=== PATIENT | male | born 1965 | race Caucasian/White ===

== ENCOUNTER 2017-03-18 03:38 | Inpatient (IN) ==
[2017-03-18] MEDS ORDERED: ZOFRAN IV ONE (04:12)
[2017-03-18] MEDS ORDERED: NS 1,000 ML IV ONE ×3 (04:12→10:42)
[2017-03-18] MEDS ORDERED: TORADOL IV ONE (04:14)
[2017-03-18] MEDS ORDERED: TORADOL ONE (04:16)
[2017-03-18 04:36] LABS: BASO% 0.2 % (0.0-0.8); EOS# 0.05 X1000 (0.0-0.7); EOS% 0.3 % (0.0-10.0); HEMATOCRIT 39.4 % (42.0-52.0); HEMOGLOBIN 14.4 g/dL (14.0-18.0); IMM GRAN# 0.04 X1000 (0.0-0.04); IMM GRAN% 0.3 % (0.0-0.5); LYMPH# 1.02 X1000 (1.2-3.4); LYMPH% 6.7 % (20.5-51.1); MANUAL DIFF NEEDED? YES; MCH 31.6 PG (27-31); MCHC 36.5 g/dL (33-37); MCV 86.4 FL (81-99); MONO# 0.96 X1000 (0.11-0.59); MONO% 6.3 % (1.7-9.3); MPV 9.9 FL (7.4-10.4); NEUT% 86.2 % (42.2-75.2); PLT 249 X1000 (130-400); RBC 4.56 XMIL (4.7-6.1)
[2017-03-18] MEDS ORDERED: VANCOMYCIN 1 GM/NS 1 GM/250 ML IVPB IV ONE ×2 (04:41→08:00)
--- NOTE | 2017-03-18 04:52 | PROVIDER DOCUMENTATION ---
HPI-Rash/Wound/ReCheck - General Chief Complaint: Extremity Pain Stated Complaint: INSECT BITE/STING Time Seen by Provider: 03/18/17 04:34 Source: patient Allergies/Adverse Reactions: Allergies Allergy/AdvReac Type Severity Reaction Status Date / Time metformin AdvReac NAUSEA/VOMI Verified 01/29/17 09:00 TING Home Medications: Home Medication List Medication Instructions Recorded Confirmed Last Taken Type Cyclobenzaprine [Flexeril] 10 mg PO TID PRN #30 tablet 03/18/15 03/18/17 21:00 Rx Insulin Degludec [Tresiba 28 unit SQ QHS 01/29/17 03/18/17 01/30/17 22:00 History Flextouch U-100] Pregabalin [Lyrica] 75 mg PO BID 01/29/17 03/18/17 01/30/17 06:20 History Hydrocodone/Acetaminophen [[place] 1 each PO Q4H PRN #25 tablet 01/31/17 03/18/17 Unknown Rx 10-325 Tablet] Linagliptin [Tradjenta] 5 mg PO DAILY 03/18/17 03/18/17 Unknown History - History of Present Illness-Dermatology Nature of Presenting Problem: yesterday developed cellutitis and lymphangitis from small pimple on palm of left hand has had 100.5 temp and chills pt is diabetic Location: reports: upper extremity Quality: reports: painful Severity: reports: moderate Onset/Duration: reports: 3 days ago Timing: reports: getting worse Context/Associated Symptoms: reports: unknown bite/sting, change in skin texture Identifiable cause?: No Locality of Occurance: Home Similar Symptoms Previously?: No Recently seen or treated by another doctor?: No Review of Systems - Adult - REVIEW OF SYSTEMS - ADULT Constitutional: reports: chills, fever Eyes: reports: no symptoms reported Ears, Nose, Mouth & Throat: reports: no symptoms reported Cardiovascular: reports: no symptoms reported Respiratory: reports: no symptoms reported Gastrointestinal: reports: no symptoms reported. denies: abdominal pain, hematemesis, diarrhea, nausea, vomiting Genitourinary: reports: dysuria Integumentary: reports: see HPI Neurological: reports: no symptoms reported Psychiatric: reports: no symptoms reported Endocrine: reports: no symptoms reported Hematologic/Lymphatic: reports: no symptoms reported Allergic/Immunologic: reports: no symptoms reported Past History - Adult - PAST MEDICAL HISTORY-ADULT Review of Records: reports: Nursing Assessment Review, Medications Reviewed Major Childhood Illnesses: reports: denies history Cardiovascular: reports: denies history Respiratory: reports: denies history Gastrointestinal: reports: denies history Genitourinary: reports: denies history Musculoskeletal: reports: chronic pain Neurological: reports: denies history Endocrine/Immune: reports: Diabetes Diabetes Type: Type 2 - PRIOR SURGERIES/PROCEDURES Surgical/Procedure History: reports: orthopedic (extremity) - IMMUNIZATION STATUS Childhood Immunizations: See Nurse Assessment Flu Vaccine: See Nurse Assessment Physical Exam-General - PHYSICAL EXAM-ADULT Initial Vital Signs Reviewed: Yes - CONSTITUTIONAL General Appearance: appears well - EYES Eyes: PERRL/EOMI, pink conjunctivae - HEAD, EARS, NOSE, MOUTH & THROAT HENMT: normocephalic/atraumatic, moist mucous membranes, normal ENT inspection - NECK Neck: non-tender, full range of motion, supple - RESPIRATORY Respiratory: chest non-tender, lungs clear - CARDIOVASCULAR Cardiovascular: normal peripheral pulses, regular rate, rhythm, no edema - GASTROINTESTINAL (ABDOMEN) Abdominal Exam: soft - LYMPHATIC Lymphatic: no adenopathy - MUSCULOSKELETAL Back Exam: normal inspection Extremity: normal range of motion, swelling - SKIN Integumentary: erythema, tenderness, warm - NEUROLOGIC Neurologic: medical records assistant II-XII nml as tested - PSYCHIATRIC Psych/Mental Status: oriented x 3 Progress - PLAN OF CARE/RESULTS Result Diagrams: 03/19/17 06:10 03/19/17 06:10 Departure - Departure Time of Disposition Decision: 05:38 DIAGNOSIS: Cellulitis Qualifiers: Site of cellulitis: extremity Site of cellulitis of extremity: upper extremity Laterality: left Qualified Code(s): L03.114 - Cellulitis of left upper limb Disposition: ADMITTED INPATIENT 09 Certified Medical Emergency: Emergent Condition: Stable - Critical Care Note This patient required my direct & personal management of CC.: No
[2017-03-18 04:53] LABS: AGAP 15; ALBUMIN 4.2 g/dL (3.5-5.0); ALKALINE PHOSPHATASE 107 U/L (32-122); BUN 19 mg/dL (8-22); CALCIUM 9.7 mg/dL (8.8-10.2); CHLORIDE 90 mmol/L (98-107); COSMO 272; GOT 12 U/L (10-34); GPT 15 U/L (10-44); SODIUM 127 mmol/L (136-145); TCO2 22 mmol/L (25-35); TOTAL PROTEIN 7.3 g/dL (6.3-8.3)
[2017-03-18] MEDS ORDERED: NORCO-7.5 PO ONE (05:00)
[2017-03-18] MEDS ORDERED: SODIUM CHLORIDE 0.9% INJ ONE (05:01)
[2017-03-18] MEDS ORDERED: PHENERGAN IV ONE (05:01)
[2017-03-18 05:06] LABS: BANDS 2 % (0-1); LYMPHS 7 % (21-51); MONO 1 % (1-9)
[2017-03-18] MEDS ORDERED: TYLENOL PO ONE (05:21)
[2017-03-18] MEDS ORDERED: MOTRIN PO ONE (05:21)
[2017-03-18] MEDS ORDERED: VANCOMYCIN IV PER PHARMACY MISC SCH (05:45)
[2017-03-18] MEDS ORDERED: CLINDAMYCIN 600 MG/NS 600 MG/50 ML IVPB IV SCH (09:30)
[2017-03-18] MEDS ORDERED: ZOFRAN IV PRN (10:44)
[2017-03-18] MEDS ORDERED: FLEXERIL PO PRN (10:44)
[2017-03-18] MEDS ORDERED: HUMALOG SUBQ SCH (11:00)
--- NOTE | 2017-03-18 11:03 | Diag Imaging Result Doc PS360 ---
EXAM: WRIST COMPLETE LEFT HISTORY: cellulitis, sepsis TECHNIQUE: Three views COMPARISON: None. FINDINGS: No fracture. No dislocation. No other bony abnormality. IMPRESSION: Negative exam Electronically signed by John Barrios 03/18/2017 11:00 AM
--- NOTE | 2017-03-18 11:05 | Diag Imaging Result Doc PS360 ---
EXAM: HAND COMPLETE LEFT HISTORY: cellulitis, sepsis TECHNIQUE: Three views COMPARISON: None. FINDINGS: No fracture. No dislocation. No bone erosions. No subluxation. IMPRESSION: No acute abnormality. Electronically signed by John Barrios 03/18/2017 11:03 AM
--- NOTE | 2017-03-18 11:07 | HISTORY AND PHYSICAL ---
PRIMARY CARE PROVIDER: MERCEDEZ Davis. CHIEF COMPLAINT: Swelling and pain to his left hand. HISTORY OF PRESENT ILLNESS: This is a 51-year-old male with a history of insulin- dependent diabetes, who presented to the emergency room complaining of fever, chills, pain, swelling, and redness to his left hand. He states that this started as a little yellow pimple at his MCP joint. This did drain and shortly after he began to develop redness, swelling, and pain with red streaks going up his left arm. He had been working outside prior to this incident. He was noted to have a temperature of a 100.2 degrees with a heart rate of 133 in the emergency room, as well as a white count of 15.2. He was given a liter of saline bolus as well as vancomycin and admitted for further evaluation and treatment. PAST MEDICAL HISTORY: Insulin-dependent diabetes. PAST SURGICAL HISTORY: Epidermal cyst excised to his neck in January 2017. SOCIAL HISTORY: He denies alcohol, tobacco, or illicit drug use. ALLERGIES: Metformin which causes nausea and vomiting. HOME MEDICATIONS: A list will be obtained. REVIEW OF SYSTEMS: A 14 point review of systems is discussed with patient with pertinent positives stated in HPI. He denies chest pain, palpitations, syncope, dizziness , any cough, nausea, vomiting, diarrhea, constipation, black or bloody vomitus, black or bloody stools, any hematuria, dysuria, frequency, urgency. PHYSICAL EXAMINATION: GENERAL: This is a 51-year-old male, who is sitting in the bed, drowsy after having Phenergan. VITAL SIGNS: Blood pressure is 127/65, with a heart rate of 122, respirations are 20, temperature is 101.9 degrees with room air saturations of 96 to 98%. HEENT: Head is normocephalic, atraumatic. Pupils equal, round, react to light. EOMs are intact. Sclerae anicteric. Mucous membranes are dry. NECK: Supple with trachea midline. CARDIOVASCULAR: Regular rate and rhythm. He is tachycardic. S1 and S2 appreciated. PULMONARY: Breath sounds are clear with no increased work of breathing noted. GASTROINTESTINAL: Abdomen is soft, nontender, nondistended. Bowel sounds in all 4 quadrants. BACK: No CVAT. No spine tenderness. MUSCULOSKELETAL: Good range of motion to joints. NEUROLOGIC: He is alert and oriented x3 with cranial nerves 2 through 12 grossly intact. EXTREMITIES: No clubbing, cyanosis, or edema to right arm or lower extremities. Left arm is edematous from just above his elbow down to his finger tips. He does have swelling with redness to his hand and up about 2 inches onto his wrist with red streaks running up his arm to his axillary area. He does have limited movement to his MCP joint to his 5th finger of his left hand due to swelling and pain. DIAGNOSTICS: WBC is 15.2, with hemoglobin 14.4, hematocrit 39.4, and platelets of 249,000. Sodium is 127, potassium 4, BUN 19, creatinine 0.9, anion gap is 15, with a CO2 of 22, glucose is 355, lactate is 2. ASSESSMENT: This is a 51-year-old male who is being admitted for cellulitis to his left hand. 1. Sepsis secondary to cellulitis of left hand. 2. Cellulitis left hand at the metacarpophalangeal joint of 5th finger. 3. Insulin-dependent diabetes. 4. Hyponatremia. PLAN: He will be admitted to the hospital. Blood cultures were obtained. He was started on vancomycin. We will continue this. We will add clindamycin. Once cultures return if needed antibiotics may be changed as appropriate to their results. We will x-ray his left hand as well as wrist. Orthopedics has been consulted. We will identify his home medications and continue as appropriate. Sliding scale insulin with pattern blood glucose. We will repeat his labs. We will continue with IV hydration and pain and nausea control. Further treatments pending hospital course. Dictated by MERCEDEZ Flores for Jassi Sparks MD cc: MERCEDEZ Flores MD pt examined, agree with above APENOT MTDD
[2017-03-18] MEDS: HUMALOG DOSE (PARKWAY) SUBQ SCH ×3 (11:50→21:38)
[2017-03-18] MEDS: NORCO-7.5 PO PRN ×3 (12:04→23:31)
[2017-03-18 12:11] LABS: HEMATOCRIT 36.9 % (42.0-52.0); MCH 30.8 PG (27-31); MCHC 35.2 g/dL (33-37); MCV 87.4 FL (81-99); MPV 9.4 FL (7.4-10.4); RBC 4.22 XMIL (4.7-6.1)
[2017-03-18 12:28] LABS: AGAP 12; BUN 20 mg/dL (8-22); CALCIUM 8.6 mg/dL (8.8-10.2); CHLORIDE 98 mmol/L (98-107); COSMO 276; POTASSIUM 3.7 mmol/L (3.5-5.1); SODIUM 132 mmol/L (136-145); TCO2 22 mmol/L (25-35)
--- NOTE | 2017-03-18 13:51 | CONSULTATION ---
DATE OF CONSULTATION: 03/18/2017 CHIEF COMPLAINT: Right hand pain with cellulitis. HISTORY OF PRESENT ILLNESS: A 51-year-old, insulin-dependent diabetic reports getting his hand scratched several days ago. Subsequently developed increased redness, swelling and warmth over the hand. He is admitted by the hospitalist for IV antibiotics for cellulitis. I was consulted just to evaluate for any joint or tendon involvement. Presently he reports appropriate pain tenderness over the right hand. PAST MEDICAL HISTORY: Significant for insulin-dependent diabetes as it relates to the infection. The rest is up-to-date and accurate per the chart. MEDICATIONS: Per the chart. ALLERGIES: Per the chart. PHYSICAL EXAMINATION: Examination the right hand reveals some streaking and cellulitis with erythema over the finger extending up into the hand. He has good active and passive range of motion of all digits and thumb indicating minimal to no flexor tendon involvement. There is no localized abscess which I can palpate. He has good range of motion the PIP and DIP and MCP joints indicating no obvious septic joint at the present time. ASSESSMENT: Cellulitis of the hand. PLAN: At this point in time I think he will respond to IV antibiotics and diabetic control. I do not see any surgical abscess or tendon involvement at present time. He can be treated with IV antibiotics and discharged for followup in my office. If his condition changes or worsens then will be happy to reevaluate him. Sincerely, cc: Gregory Puentes MD
[2017-03-18] MEDS ORDERED: TYLENOL PO PRN (15:34)
[2017-03-18] MEDS ORDERED: INSULIN PEN NEEDLES ONE (21:35)
[2017-03-18] MEDS: VANCOMYCIN 1,800 MG in NS 250 ML IV SCH (21:37)
[2017-03-18] MEDS: INSULIN DEGLUDEC SQ SCH (21:37)
[2017-03-18] MEDS: CLINDAMYCIN 600 MG/NS 600 MG/50 ML IVPB IV SCH (21:37)
[2017-03-18] MEDS: LYRICA PO SCH (21:38)
[2017-03-19] MEDS: CLINDAMYCIN 600 MG/NS 600 MG/50 ML IVPB IV SCH ×3 (03:21→21:43)
[2017-03-19] MEDS: NORCO-7.5 PO PRN ×3 (06:20→22:49)
[2017-03-19] MEDS: PRILOSEC PO SCH (06:20)
[2017-03-19] MEDS: HUMALOG DOSE (PARKWAY) SUBQ SCH ×4 (06:21→21:45)
[2017-03-19 06:40] LABS: HEMATOCRIT 38.1 % (42.0-52.0); HEMOGLOBIN 13.3 g/dL (14.0-18.0); MCH 30.6 PG (27-31); MCHC 34.9 g/dL (33-37); MCV 87.8 FL (81-99); MPV 9.8 FL (7.4-10.4); RBC 4.34 XMIL (4.7-6.1)
[2017-03-19 06:49] LABS: HEMOGLOBIN A1C 9.3 % (4.8-6.0)
[2017-03-19 07:03] LABS: AGAP 14; BUN 14 mg/dL (8-22); CALCIUM 8.6 mg/dL (8.8-10.2); CHLORIDE 95 mmol/L (98-107); COSMO 267; POTASSIUM 3.6 mmol/L (3.5-5.1); SODIUM 131 mmol/L (136-145); TCO2 23 mmol/L (25-35)
[2017-03-19] MEDS ORDERED: DILAUDID IV ONE (07:44)
[2017-03-19] MEDS: LYRICA PO SCH ×2 (08:04→21:44)
[2017-03-19] MEDS: TRADJENTA PO SCH (08:04)
[2017-03-19] MEDS: VANCOMYCIN 1,800 MG in NS 250 ML IV SCH (08:22)
[2017-03-19] MEDS ORDERED: ZOSYN 3.375 GM/NS 3.375 GM/50 ML IVPB IV SCH (09:45)
[2017-03-19] MEDS ORDERED: ROCEPHIN 1 GM/NS 1 GM/50 ML IVPB IV SCH (10:15)
[2017-03-19] MEDS: CLINDAMYCIN 900 MG/NS 900 MG/50 ML IVPB IV SCH ×2 (11:17→11:21)
--- NOTE | 2017-03-19 12:28 | Extremity Venous Study ---
EXAM: Venous U/S Left Arm HISTORY: r/o dvt TECHNIQUE: Venous ultrasound of the left upper extremity with color Doppler COMMENT: There is no evidence of obstruction to venous flow in the deep veins of the left upper extremity. No evidence of superficial venous thrombosis is present. There are no abnormal fluid collections. IMPRESSION: No evidence of deep venous thrombosis. Electronically signed by Alex Key 03/19/2017 12:26 PM
[2017-03-19] MEDS: LACTINEX PO SCH ×2 (12:33→17:45)
[2017-03-19] MEDS: DILAUDID IV PRN ×2 (15:18→21:17)
--- NOTE | 2017-03-19 15:36 | Diag Imaging Result Doc PS360 ---
EXAM: MRI UPPER EXT W/WO CON-LEFT HISTORY: cellulitis TECHNIQUE: MRI of the left forearm with and without gadolinium, T2 sagittal gradient sagittal, axial pre and post gadolinium and axial T2, coronal T1, T2 and T1 fat sat post gadolinium series. COMMENT: There is soft tissue edema in the subcutaneous tissues extending from the area of the antecubital fossa to the wrist and mostly in the volar aspect but some dorsally in the area of the wrist. There is no evidence of abnormal marrow signal in the regional skeleton. There is gadolinium enhancement in the aforementioned soft tissue regions. No signal alterations are seen in the musculature. IMPRESSION: Superficial cellulitis. Electronically signed by Alex Key 03/19/2017 3:34 PM
--- NOTE | 2017-03-19 16:18 | PROGRESS NOTE ---
DATE: 03/19/2017 SUBJECTIVE: The patient states that he is having much more pain to his left hand with increasing swelling, as well as some decreased sensation to his 5th and 4th fingers. OBJECTIVE: Vital Signs: Blood pressure 144/79, heart rate 100, respirations 19 , temperature 100 degrees oral, room air saturation of 97-100%. Cardiovascular: Regular rate and rhythm. S1 and S2 appreciated. Pulmonary: Breath sounds are clear with no increased work of breathing noted. Gastrointestinal: Abdomen is soft, nontender, nondistended with bowel sounds in all 4 quadrants. Extremities: No clubbing, cyanosis, or edema to the right upper extremity or bilateral lower extremities. Left upper extremity has noted edema from the elbow down to fingertips with erythema up to about an inch to 2 inches above his wrist to fingertips with increase in swelling to his hand. He does have decreased movement to the MCP joint of his 5th finger, left hand. He does state he has decreased sensation to this 5th finger as well as the 4th. He does have palpable radial and ulnar pulses with capillary refill less than 3 seconds. LABS: WBC is 16.7 with hemoglobin 13.3, hematocrit 38.1 and platelets of 219, 000. Sodium is 131, potassium 3.6, BUN 14, creatinine 0.7 with a glucose running 160-190. His A1c is 9.3. DIAGNOSTIC: 1. Extremity Doppler to left arm is negative for DVT. 2. MRI to his left upper extremity is pending. PROBLEM LIST: 1. Cellulitis to left hand. 2. Sepsis secondary to cellulitis. 3. Insulin-dependent diabetes. 4. Hyponatremia. ASSESSMENT AND PLAN: Patient states his pain increased about between 3 and 4 this morning. He had a sudden onset of sharp pain along with an increase in swelling and the patient has kept his arm elevated throughout the hospitalization. Edema has increased to his elbow now with increased edema to his hand. He does have less movement to that 5th finger and decreased sensation. Wound culture returned as group A strep. I did speak with Dr. Kellogg in Infectious Disease and antibiotics were changed to clindamycin and Rocephin for this. The patient will be transferred to [facility] for continued orthopedic care. Dictated by MERCEDEZ Flores for Jassi Sparks MD cc: MERCEDEZ Flores MD pt examined, agree with above, MRI to evaluate for abscess, and will need to r/ o DVT APENOT MTDD
[2017-03-19] MEDS ORDERED: INSULIN PEN NEEDLES ONE (16:43)
[2017-03-19] MEDS ORDERED: BOOSTRIX VACCINE IM ONE (16:55)
--- NOTE | 2017-03-19 17:14 | CONSULTATION ---
DATE OF CONSULTATION: 03/19/2017 CONCLUSION: The patient is admitted to the hospital with cellulitis involving the left hand, and with lymphangitis involving the rest of the left arm. On MRI, only cellulitis was found. There was no abscess, and the cellulitis was said to be superficial. RECOMMENDATIONS: I agree with treating the patient with clindamycin. I have substituted Zosyn for Rocephin. I told patient to elevate his L arm as much as possible and I also ordered the elevation. Since the patient did not remember when he had his last tetanus immunizatin, I ordered a tetanus/diphtheria/acellular pertussis immunization. DISCUSSION: The patient says approximately 5 days ago, his left hand became swollen and erythematous, and progressively got worse. He also had fever. 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 He has been receiving antibiotics at [facility], consisting of clindamycin and Rocephin, and his hand has gotten worse. LABORATORY STUDIES: The patient's laboratory studies thus far show a CBC, the white count went from 18,600 to 16,730. Hemoglobin is 13.3, and platelet count is 219,000. Creatinine is 0.7. GFR is greater than 60. Liver function studies are normal. Cultures from the blood and left hand thus far are pending. PAST MEDICAL HISTORY/REVIEW OF SYSTEMS: Eyes and Ears: The patient has decreased hearing and vision. Neck: No stiffness. Respiratory: No cough or shortness of breath. Cardiovascular: No chest pain or palpitations. Gastrointestinal: No nausea, vomiting, or diarrhea. The patient has not had a stool in the past day, and usually he states he goes every day. Genitourinary: No dysuria or flank pain. Endocrine: The patient has diabetes, but not thyroid disease. Bones, Joints, Muscles: Please see present illness. Otherwise, the patient does not complain of having joint pains or muscle pain. Neurologic: No seizures. No loss of motor or sensory function. Hematologic: No anemia or bleeding tendency. PREVIOUS HOSPITALIZATIONS AND OPERATIONS: He has had a cyst removed from his neck. He has had surgery on his left shoulder. He has had epidural injections into his spine for pain relief. MEDICAL DISEASES: Positive for diabetes mellitus. The patient says his blood pressure is elevated at times, but not continuously. Patient also has arthritis, most likely due to osteoarthritis. Infectious Disease history negative for pneumonia and UTI. FAMILY HISTORY: Positive for diabetes mellitus and alcoholism. SOCIAL HISTORY: [place] He does not drink, smoke, or abuse drugs. He has rabbits and dogs for pets. He is allergic to metformin. He works as a maintenance millwright. HOME MEDICATIONS: He is on Flexeril, Lyrica, Tradjenta, insulin, and hydrocodone. PHYSICAL EXAMINATION: Vital Signs: Temperature is 98.9 degrees, pulse 101, respirations 16, blood pressure 149/85. General: This is a fairly healthy-appearing, middle- aged male. He is in no acute distress. Head, Eyes, Ears, Nose, and Throat: He can hear my spoken words and see near objects. The patient has teeth, but they seem to be in very poor state of repair, and many of them appear to have cavities. Neck: No meningismus. Thorax: No increased AP diameter. Lungs: Clear to auscultation. Cardiovascular: Regular heart rate. Peripheral pulses are palpable. Abdomen: Soft and nontender. Extremities: The patient's left hand is swollen , erythematous, and tender. Passive movement of the fingers causes the patient to have pain. Also , the same thing with the wrist, in that passive movement causes pain. There is lymphangitic streaking occurring from the patient's hand, almost up to the top of the arm. Neurologic: Patient is awake. He can move his extremities. There is no tremor. His sensation is intact to touch. His memory, as regarding his medical history, is intact also. Thank you for the consult. cc: Bob Kellogg MD [facility]CH HOSPITALHugh
[2017-03-19] MEDS: ZOSYN 3.375 GM/NS 3.375 GM/50 ML IVPB IV SCH ×2 (17:44→22:49)
--- NOTE | 2017-03-19 18:07 | PROGRESS NOTE ---
DATE: 03/19/2017 SUBJECTIVE: I have seen Mr. Bello today for followup. He has undergone an MRI of the forearm. Review of the MRI showed no evidence of a localized abscess or fluid collection which could be surgically drained. It did show evidence of extensive cellulitis. We have suggested the possibility of an infectious disease consult just for further IV antibiotic choices. OBJECTIVE: Presently on exam he has good range of motion of the digits. There is minimal swelling of the digits, once again suggesting no obvious flexor tendon sheath involvement. There are no active draining sores. He does have some extensive cellulitis over the hand and into the forearm. Will follow along just to verify that he improves. At the present time, I do not see any surgical indications. Continue with IV antibiotics and infectious disease consultation. cc: Gregory Puentes MD
[2017-03-19] MEDS: INSULIN DEGLUDEC SQ SCH (21:45)
[2017-03-20] MEDS: DILAUDID IV PRN ×7 (02:32→23:02)
[2017-03-20] MEDS: ZOSYN 3.375 GM/NS 3.375 GM/50 ML IVPB IV SCH ×6 (03:47→22:16)
[2017-03-20] MEDS: CLINDAMYCIN 600 MG/NS 600 MG/50 ML IVPB IV SCH ×3 (04:49→22:22)
[2017-03-20] MEDS: NORCO-7.5 PO PRN ×2 (04:49→17:59)
[2017-03-20] MEDS: PRILOSEC PO SCH (06:22)
[2017-03-20] MEDS: HUMALOG DOSE (PARKWAY) SUBQ SCH ×2 (06:23→12:09)
--- NOTE | 2017-03-20 08:44 | PROGRESS NOTE ---
DATE: 03/20/2017 PRESENT ILLNESS: The patient has a severe cellulitis involving the left hand, and has with it an associated lymphangitis extending up the left arm. Overall, I think the patient is improving as manifested by the fact that his white count is down a little bit. Overall, I think the patient is improving as manifested by the fact that his white count is down a little bit. Also, there is slightly less swelling and the patient reports that he can move his fingers much easier than previously and he is having overall less pain. MEDICATIONS: The patient is on a combination now of clindamycin and Zosyn. PHYSICAL EXAMINATION: Vital Signs: Temperature is 98.7 degrees, pulse 97, respirations 18, blood pressure 131/76. General: This is a fairly healthy-appearing, middle-aged male. He is in no acute distress. Lungs: Clear to auscultation. Cardiovascular: Regular heart rate. Abdomen: Soft and nontender. Extremities: The left arm, although slightly less swollen, still is swollen and there also is continued erythema both in the hand and extending upward in the arm and as lymphangitis. LAB AND X-RAY STUDIES: The quick test for group A strep coming from the patient's hand is positive. There is not any new lab from today. There is no radiographic study done today. The patient's CT scan shows cellulitis, but no abscess or osteomyelitis ASSESSMENT AND PLAN: Overall the patient is getting better. The patient has severe cellulitis. I would suggest continuing with the current antibiotics namely clindamycin and Zosyn. I also again told the patient to elevate his arm as much as possible. 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 The patient also has diabetes mellitus. cc: Bob Kellogg MD
[2017-03-20] MEDS: TRADJENTA PO SCH (08:47)
[2017-03-20] MEDS: LYRICA PO SCH ×2 (08:47→20:44)
[2017-03-20] MEDS: LACTINEX PO SCH ×3 (08:49→17:20)
[2017-03-20] MEDS: BENADRYL PO PRN ×2 (10:46→20:44)
--- NOTE | 2017-03-20 12:43 | PROGRESS NOTE ---
DATE: 03/20/2017 SUBJECTIVE: I am seeing Mr. Bello today for followup of cellulitis of his left forearm. OBJECTIVE: There is decreased swelling over the tendons. There is no evidence of flexor tendon involvement. He has minimal to no pain on passive extension of the digits. There is good range of motion of his fingers and thumb. He continues with soft tissue edema, redness, and cellulitis over the volar forearm and slightly over the dorsal aspect of the wrist. Palpation of the hand reveals no obvious palpable abscess in the thenar or hypothenar space. It appears to be more diffuse soft tissue edema in the subcutaneous area on the MRI and exam. At this point in time, I still do not find any possible surgical options which would benefit him, in my opinion. PLAN: We will follow along for an additional day to see how he responds to IV antibiotics. cc: Gregory Puentes MD
--- NOTE | 2017-03-20 15:05 | PROGRESS NOTE ---
DATE: 03/20/2017 SUBJECTIVE: Today, Mr. Bello refers to be doing a lot better. He continues to have some significant swelling and erythematous changes on the left forearm. OBJECTIVE: Vital signs: Blood pressure is 133/75, pulse 93, respirations 18, temperature is 98.8. General exam: Mr. Bello is a 51-year-old, male. He was in bed. He did not seems to be in any distress. HEENT: Mucosa is pink and moist. Anicteric. Acyanotic. Neck: Supple. Chest: Clear. Cardiovascular: Regular rate and rhythm. Abdomen: Soft, nontender. Extremities: No pedal edema. CONTRACT PREPARER: Patient is alert and oriented x4. There is no focal neurological deficit. Integumentary: Left upper arm, the medial and volar aspect has erythematous changes. It is warm to touch. It is tender. The erythematous changes extend all the way to mid arm in the medial aspect. LABORATORY DATA: WBC 16.72, hemoglobin is 13.3, platelet count of 219. Chemistries reviewed. Glucose is 209, A1c 3.9. So far, I see a human bite culture does grow in gram-positive cocci. CURRENT MEDICATIONS: 1. [place]. 2. Clindamycin 600 q.8. 3. Flexeril. 4. DPH. 5. Dilaudid. 6. Lactobacillus. 7. Linagliptin 5 mg daily. 8. Insulin 28 units at bedtime. 9. Zosyn 3.375 q.6. 10. Pregabalin 75 mg b.i.d. ASSESSMENT: 1. Sepsis on presentation. Resolved. 2. Cellulitis to left forearm extending to the arm, with lymphangitis. This is improving. Patient is on antibiotic and is being followed up by Dr. Kellogg. 3. Insulin dependent diabetes mellitus, stable. PLAN: I think in general, Mr. Bello is improving. We are going to continue with the current antibiotic. Has been evaluated by Orthopedics. At this point, there is no any surgical intervention. We will continue with medical care. cc: MD JENNY Fenton
[2017-03-20] MEDS: HUMALOG SUBQ SCH ×2 (17:17→20:45)
[2017-03-20] MEDS ORDERED: FLEXERIL PO PRN (20:35)
[2017-03-20] MEDS ORDERED: TYLENOL PO PRN (20:35)
[2017-03-20] MEDS ORDERED: NON-FORMULARY BULK MED SUBQ SCH (21:00)
[2017-03-20] MEDS: NON-FORMULARY BULK MED SUBQ SCH (21:02)
[2017-03-21] MEDS: DILAUDID IV PRN ×7 (02:08→22:34)
[2017-03-21] MEDS: ZOSYN 3.375 GM/NS 3.375 GM/50 ML IVPB IV SCH (05:14)
[2017-03-21] MEDS: HUMALOG SUBQ SCH ×4 (06:16→20:47)
[2017-03-21] MEDS: BENADRYL PO PRN ×2 (06:16→20:48)
[2017-03-21] MEDS: PRILOSEC PO SCH (06:16)
[2017-03-21 06:46] LABS: MANUAL DIFF NEEDED? NO
[2017-03-21 06:52] LABS: BASO% 0.2 % (0.0-0.8); EOS# 0.14 X1000 (0.0-0.7); EOS% 1.6 % (0.0-10.0); HEMATOCRIT 38.1 % (42.0-52.0); HEMOGLOBIN 13.3 g/dL (14.0-18.0); LYMPH# 1.35 X1000 (1.2-3.4); LYMPH% 15.7 % (20.5-51.1); MCHC 34.9 g/dL (33-37); MCV 88.8 FL (81-99); MONO# 0.69 X1000 (0.11-0.59); MPV 9.7 FL (7.4-10.4); NEUT% 74.5 % (42.2-75.2); PLT 251 X1000 (130-400); RBC 4.29 XMIL (4.7-6.1)
[2017-03-21] MEDS: CLINDAMYCIN 600 MG/NS 600 MG/50 ML IVPB IV SCH (07:07)
[2017-03-21 07:27] LABS: AGAP 13; BUN 12 mg/dL (8-22); CALCIUM 9.1 mg/dL (8.8-10.2); CHLORIDE 94 mmol/L (98-107); COSMO 275; POTASSIUM 3.8 mmol/L (3.5-5.1); SODIUM 134 mmol/L (136-145); TCO2 27 mmol/L (25-35)
[2017-03-21] MEDS: NORCO-7.5 PO PRN ×3 (07:34→18:02)
--- NOTE | 2017-03-21 07:42 | PROGRESS NOTE ---
DATE: 03/21/2017 Mr. Bello is seen for followup of his cellulitis of the forearm. His white blood cell count is dropping and is now in the normal range. He is afebrile with stable vital signs. There is decreased swelling over the hand and digits. The majority of the cellulitis is now localized over the volar aspect of the forearm. There is no obvious abscess. At this point in time. He is responding to nonsurgical care and IV antibiotics. I will be available for follow up at this point but otherwise be signing off. Thanks once again for asking us to be involved. cc: Gregory Puentes MD
[2017-03-21] MEDS: TRADJENTA PO SCH (09:23)
[2017-03-21] MEDS: LYRICA PO SCH ×2 (09:23→22:34)
[2017-03-21] MEDS: LACTINEX PO SCH ×3 (09:24→17:09)
--- NOTE | 2017-03-21 10:07 | PROGRESS NOTE ---
DATE: 03/21/2017 PRESENT ILLNESS: The patient has a severe cellulitis involving the left hand with an associated lymphangitis which extends up his left arm. I think the patient continues to improve. There seems to be less swelling, and possibly the erythema is not quite as prominent as it has been. MEDICATIONS: The patient currently is on a combination of clindamycin and Zosyn. PHYSICAL EXAMINATION: Vital Signs: Temperature 99 degrees, pulse 98, respirations 18, blood pressure 115/81. Generally: This is a fairly healthy-appearing, middle-aged male. He is in no acute distress. Lungs: Clear to auscultation. Cardiovascular: Regular heart rate. Abdomen: Soft and nontender. Extremities: The left arm has erythema and swelling of the hand although it is coming down. There is a large lymphangitis extending from the left hand almost up to the shoulder. LAB AND X-RAY: The culture from the patient's arm is growing an oxacillin sensitive Staph aureus and a group A beta-hemolytic strep. The patient's creatinine is 0.9. GFR is greater than 60. CBC shows a white count of 8580. Hemoglobin 13.3, and platelet count 251,000. ASSESSMENT AND PLAN: Patient has a strep and staph cellulitis of the hand with lymphangitis. The plan will be to continue having the patient elevate his arm. I am going to switch his antibiotics from clindamycin and Zosyn to Ancef 2 g IV every 8 hours. 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 Patient also has diabetes mellitus. cc: Bob Kellogg MD MTDD
[2017-03-21] MEDS: KEFZOL 2 GM/D5W 2 GM/50 ML IVPB IV SCH ×2 (11:55→17:15)
--- NOTE | 2017-03-21 14:58 | PROGRESS NOTE ---
DATE: 03/21/2017 SUBJECTIVE: Today, Mr. Bello referred to be doing a whole lot better. The left arm looks slightly better than yesterday. OBJECTIVE: Vital signs: Blood pressure is 151/79, pulse 94, respirations 18, and temperature is 98.7 degrees. General: Mr. Bello is a 51-year-old male. He is in bed , not in any distress. HEENT: Mucosa pink and moist. Anicteric. Acyanotic. Neck: Supple. Chest: Good air entry bilaterally. No crepitations. No rhonchi. Cardiovascular: Regular rate and rhythm. Did not hear any murmurs. No rubs. No gallops. Abdomen: Soft. Neurologic: Patient is alert and oriented x4. There is no focal neurological deficit. Musculoskeletal: The left arm continues to be swollen, more densely in the volar part of the wrist with extension of erythematous changes all the way to the arm medially. LABORATORY DATA: WBC has normalized at 8.58. Hemoglobin is 13.3, platelet count 251,000. Chemistry is reviewed and unremarkable except for the sodium mildly at 134 and glucose of 228. The culture from the wound shows Streptococcus pyogenes and Methicillin- sensitive Staphylococcus aureus. CURRENT MEDICATIONS: Has been switched to cefazolin. ASSESSMENT AND PLAN: 1. Sepsis on presentation. Systemic inflammatory response syndrome criteria have resolved. White blood cell count has normalized. 2. Cellulitis to left forearm extending to the arm with lymphangitis. The culture from an open wound on the finger has shown Streptococcus pyogenes and Methicillin-sensitive Staphylococcus aureus. The patient has been switched to IV Ancef. Zosyn and clindamycin have been discontinued. 3. Insulin-dependent diabetes mellitus, relatively stable. 4. Morbid obesity with body mass index of 30.5. Counseled. So, I think, in general Mr. Bello is doing a whole lot better. We are going to continue with the current change in the IV medications and see if he tolerates it. We would want better improvement in the swelling before we send him home since this is his dominant extremity and we do not want to have it compromise. I anticipate I will probably be able to discharge the patient home on Friday, probably with IV antibiotics. cc: Terry Harrison MD MTDHugh
[2017-03-21] MEDS: NON-FORMULARY BULK MED SUBQ SCH (20:47)
[2017-03-21] MEDS ORDERED: LANTUS SUBQ SCH (21:00)
[2017-03-22] MEDS: KEFZOL 2 GM/D5W 2 GM/50 ML IVPB IV SCH ×3 (02:30→17:24)
[2017-03-22] MEDS: DILAUDID IV PRN ×6 (02:30→20:36)
[2017-03-22] MEDS: PRILOSEC PO SCH ×2 (05:50→06:45)
[2017-03-22] MEDS: ZOFRAN IV PRN (05:50)
[2017-03-22 06:26] LABS: HDL 29 mg/dL (35-55); LDL 91 mg/dL; TRIGLYCERIDES 102 mg/dL (39-160); VLDL 20 mg/dL
[2017-03-22] MEDS: HUMALOG SUBQ SCH ×4 (06:41→20:36)
[2017-03-22] MEDS: LACTINEX PO SCH ×3 (09:17→17:24)
[2017-03-22] MEDS: LYRICA PO SCH ×2 (09:17→20:37)
[2017-03-22] MEDS: TRADJENTA PO SCH (09:21)
[2017-03-22] MEDS: BENADRYL PO PRN (09:40)
[2017-03-22] MEDS: NORCO-7.5 PO PRN (11:57)
[2017-03-22] MEDS ORDERED: NON-FORMULARY BULK MED SUBQ SCH (12:27)
--- NOTE | 2017-03-22 14:08 | PROGRESS NOTE ---
DATE: 03/22/2017 SUBJECTIVE: Today Mr. Bello refers to be doing relatively fine. Continues to have significant pain in the left wrist. He also referred that he had multiple episodes of drench sweating yesterday but the temperatures were normal. This morning he is complaining of minimum itching at the tip of the nose. OBJECTIVE: Vital signs: Blood pressure is 138/71, pulse of 92, respirations 20 , temperature is 98.7 degrees. Of note, patient has not had any more spike in temperature since 03/18. General: Mr. Bello is a 51-year-old male. He is in bed, not seemingly distressed. HEENT: Mucosa is pink and moist. Anicteric. Acyanotic. Neck: Supple. Chest: Clear. Cardiovascular: Regular rate and rhythm. No murmurs, no rubs. Abdomen: Soft, nontender. No hepatosplenomegaly. Bowel sounds are present. [employer]: Patient is alert and oriented x4. No focal neurological deficit. Musculoskeletal: Patient has the left arm continues to be remarkably swollen especially at the wrist level. The medial aspect of the wrist at the volar area is tender, is erythematous. There is a small area of some purulence and also a complete extension of the redness up to the arm. I did not see any major improvement since yesterday. LABORATORY DATA: WBC is down to 8.58, hemoglobin is 13.3, platelet count of 251 ,000. Glucose is 262. HDL cholesterol is 29. CURRENT MEDICATIONS: Include 1. Cefazolin 2 g IV q.6. 2. Benadryl p.r.n. 3. Insulin. ASSESSMENT: 1. Sepsis on presentation. Systemic inflammatory response syndrome criteria has improved. 2. Cellulitis to left forearm extending to the arm with lymphangitis. Cultures positive for methicillin-resistant Staphylococcus aureus and Strep pyogenes. Antibiotics has been switched to Ancef. I have not seen any remarkable improvement since yesterday. Will give it some time. The wrist looks like it is forming some abscess. Will be keeping a very close eye on this. If by tomorrow there is a lot of fluctuance we will reconsult orthopedics to drain this. 3. Diabetes mellitus uncontrolled. A1c on presentation was 9.3. Patient is on Tresiba at 28 mg and he is also getting sliding scale. We are going to increase the Tresiba to 32 and continue coverage with the sliding scale. 4. Obesity with a BMI of 30.5. Has been counseled. 5. Dyslipidemia with very low HDL cholesterol. Will start the patient on a statin drug. 6. Minimum erythematous papular rash on the nose. I suspect this could be just a contact dermatitis however a herpetic lesion cannot be excluded. Will reevaluate the patient later today or 1st thing in the morning to see if there has been any changes on the lesions on the nose. cc: Terry Harrison MD MTDD
[2017-03-22] MEDS: NON-FORMULARY BULK MED SUBQ SCH (20:36)
[2017-03-22] MEDS: LIPITOR PO SCH (20:37)
[2017-03-23] MEDS: DILAUDID IV PRN ×4 (02:09→20:25)
[2017-03-23] MEDS: KEFZOL 2 GM/D5W 2 GM/50 ML IVPB IV SCH ×4 (02:09→18:07)
[2017-03-23 05:46] LABS: MANUAL DIFF NEEDED? NO
[2017-03-23 05:53] LABS: BASO% 0.6 % (0.0-0.8); EOS# 0.23 X1000 (0.0-0.7); EOS% 3.5 % (0.0-10.0); HEMATOCRIT 38.1 % (42.0-52.0); HEMOGLOBIN 13.5 g/dL (14.0-18.0); IMM GRAN# 0.05 X1000 (0.0-0.04); IMM GRAN% 0.8 % (0.0-0.5); LYMPH% 22.5 % (20.5-51.1); MCH 31.3 PG (27-31); MCHC 35.4 g/dL (33-37); MCV 88.2 FL (81-99); MONO# 0.86 X1000 (0.11-0.59); MONO% 12.9 % (1.7-9.3); MPV 9.1 FL (7.4-10.4); NEUT% 59.7 % (42.2-75.2); PLT 302 X1000 (130-400); RBC 4.32 XMIL (4.7-6.1)
[2017-03-23 06:16] LABS: AGAP 14; BUN 11 mg/dL (8-22); CALCIUM 10.4 mg/dL (8.8-10.2); CHLORIDE 95 mmol/L (98-107); COSMO 279; POTASSIUM 4.3 mmol/L (3.5-5.1); SODIUM 137 mmol/L (136-145); TCO2 28 mmol/L (25-35)
[2017-03-23] MEDS: PRILOSEC PO SCH (06:24)
[2017-03-23] MEDS: HUMALOG SUBQ SCH ×4 (06:24→20:29)
[2017-03-23] MEDS: NORCO-7.5 PO PRN (08:53)
[2017-03-23] MEDS: LYRICA PO SCH ×2 (08:53→20:28)
[2017-03-23] MEDS: TRADJENTA PO SCH (08:53)
[2017-03-23] MEDS: LACTINEX PO SCH ×3 (08:54→17:07)
[2017-03-23] MEDS: ZOFRAN IV PRN (13:07)
--- NOTE | 2017-03-23 15:19 | PROGRESS NOTE ---
DATE: 03/23/2017 SUBJECTIVE: The patient was admitted on 03/18/2017 with swelling and pain in his left hand. This is a 51-year-old with a history of insulin-dependent diabetes presented to the emergency room complaining of fever, chills, pain, swelling, and redness in his left hand. He states that he started with a little yellow pimple at his MCP and this did drain and shortly after he began to develop redness and swelling and pain and red streaks going up his left arm. He has been working outside prior to this incident. He is noted to have a temperature 100.2 degrees, heart rate was 133. Past medical history of an epidermal cyst excised in his neck in January of 2017. Admitted with sepsis and cellulitis of the left hand, metacarpophalangeal joint of the 5th finger. He is better. His hand is definitely better and less swelling. Still have some swelling and erythema and some resolve bulla on the left little finger and raised swelling in his left wrist. OBJECTIVE: Vital signs: Temp 99.2 degrees, pulse 99, respirations 16, blood pressure 146/80. Urine output was 2500 mL. LAB: White count 6,660, hematocrit 38, platelet count 302,000. Chemistry: Sodium 137, potassium 4.3, chloride 95, bicarb 28, BUN 11, creatinine 0.9, blood sugar 287,202, and 204. ASSESSMENT AND PLAN: 1. Sepsis on presentation, septic inflammatory response syndrome. Criteria has improved. 2. Cellulitis of the left forearm, extending to the arm with lymphangitis and cellulitis of the hand. Culture is positive for methicillin-resistant Staph aureus and Strep pyogenes. Antibiotics have been switched to Ancef. We have not seen any remarkable improvement since yesterday, we gave it some time, but today is much better. Continues to improve. 3. Diabetes mellitus, uncontrolled. Hemoglobin A1c was 9.3. The patient is on Tresiba 29 mg. also gets sliding scale. Blood sugar is improving. 4. Obesity. BMI 30.5. Encouraged low carbohydrate diet, low-calorie diet. 5. Dyslipidemia. Very low HDL cholesterol and started the patient on statin. 6. Minimum erythematous papular rash on his nose. Suspect this could be contact dermatitis; however, could be herpetic lesions as well. Seems to be improving. REVIEW OF ORDERS: I do not see any change. He is on Lyrica 75 mg b.i.d., Prilosec 40 mg a day, Tradjenta 5 mg p.o. daily, cefazolin 2 g IV q.8, Lipitor 20 mg at bedtime. cc: Avery Jarrett MD
[2017-03-23] MEDS: NON-FORMULARY BULK MED SUBQ SCH (20:28)
[2017-03-23] MEDS: LIPITOR PO SCH (20:28)
[2017-03-24] MEDS: KEFZOL 2 GM/D5W 2 GM/50 ML IVPB IV SCH ×2 (01:34→09:15)
--- NOTE | 2017-03-24 07:08 | PROGRESS NOTE ---
DATE: 03/22/2017 ADDENDUM REPORT DIAGNOSIS: Cellulitis to left forearm extending to arm with lymphangitis. Cultures positive for MSSA and Streptococcus pyogenes. cc: Terry Harrison MD
[2017-03-24 07:40] VITALS: BP 133/80
[2017-03-24] MEDS: TRADJENTA PO SCH (09:13)
[2017-03-24] MEDS: LACTINEX PO SCH (09:14)
[2017-03-24] MEDS: NORCO-7.5 PO PRN (09:14)
[2017-03-24] MEDS: LYRICA PO SCH (09:14)
--- NOTE | 2017-03-24 09:39 | PROGRESS NOTE ---
DATE: 03/24/2017 PRESENT ILLNESS: The patient had severe cellulitis of his left hand with lymphangitic streaking up his arm. MEDICATIONS: Patient is receiving IV Ancef. PHYSICAL EXAMINATION: Vital Signs: Temperature is 98.6, pulse 95, respirations 14, blood pressure is 133/80. General: This is a healthy-appearing, middle-aged male. He is in no acute distress. Lungs: Clear to auscultation. Cardiovascular: Regular heart rate. Abdomen: Soft and nontender. Extremities: The left arm has definitely improved quite a bit. The swelling is almost completely gone, as is the erythema including lymphangitic streaking. LAB AND X-RAY: The patient's culture grew a combination of streptococcus and staphylococcus. CBC showed a white count of 6660, hemoglobin 13.5, and platelet count 302,000. Creatinine is 0.9 with a GFR of greater than 60. ASSESSMENT AND PLAN: Since the arm is so much improved, I think the patient can be discharged today on oral Keflex. I have written for a prescription. The patient's arm is much improved. The plan is to discharge the patient today on oral Keflex. I have written a prescription for it for 2 weeks. I have requested the patient see me in the office in 2 weeks. However, I told him that if his arm is completely recovered, he can cancel the appointment. 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 This was probably where the infection started, because of 1 of those cuts or scratches. The patient also has diabetes mellitus. cc: Bob Kellogg MD
--- NOTE | 2017-03-24 10:46 | DISCHARGE SUMMARY ---
ADMISSION DATE: 03/18/2017 DISCHARGE DATE: 03/24/2017 HOSPITAL COURSE: A 51-year-old with a history of insulin-dependent diabetes who presented with swelling in his left hand. He does construction and manual work. He was complaining of fever, chills, pain, and swelling, and redness in the left hand. He said he had a little yellow pustule or pimple on his MCP in the 5th finger. It did drain. Shortly after that, he developed some redness, swelling, pain, and red streaks in the left arm. Temperature was 100.2 degrees. He was admitted with sepsis secondary to cellulitis of the left hand, cellulitis of the left hand metacarpophalangeal joint, 5th finger. Sugars were maintained with sliding scale and was put on empiric antibiotics. He showed steady improvement. The cultures from the wound grew Streptococcus pyogenes group A and staphylococcus which was sensitive to oxacillin. He showed marked improvement. Have him continue to elevate his hand. I do not think that he is ready go back to work yet but he will go back and see Danya Le in another week. We will discharge him home. Keep him on antibiotics. Dr. Jante Kellogg was following as well. His creatinine was 0.9. Renal function remained good. He is on oral Keflex which will keep on for a couple of weeks. He will follow up with Dr. Kellogg and also follow up with Danya Le. DISCHARGE MEDICATIONS: Will be Keflex. I will give him a few [place]. He is on Lipitor 20 mg at bedtime which we had started. He is on Tradjenta 5 mg p.o. daily, Prilosec 40 mg a day, Lyrica 75 mg b.i.d. His blood sugars have run anywhere from 200-286 so it is important that he gets followup and he check sugars at home. cc: Avery Jarrett MD
== END 2017-03-24 11:45 | disposition home or self-care (01) ==
LOC: P.ED 03:38 → SUATTDRO 03:39 → P.MEDSURG 06:10 → P.ICU 03-19 13:25 → P.MEDSURG 03-19 13:28 → 4N 03-19 15:20
PROVIDERS: ATTEND Emergency Medicine

== ENCOUNTER 2019-06-10 07:25 | Day surgery (SDC) ==
[2019-06-09 11:18] LABS: BASO# 0.03 X1000 (0.0-0.2); BASO% 0.3 % (0.0-0.8); EOS# 0.14 X1000 (0.0-0.7); EOS% 1.6 % (0.0-10.0); HEMATOCRIT 39.5 % (42.0-52.0); HEMOGLOBIN 14.1 g/dL (14.0-18.0); LYMPH# 1.83 X1000 (1.2-3.4); LYMPH% 21.2 % (20.5-51.1); MCHC 35.7 g/dL (33-37); MCV 86.8 FL (81-99); MONO# 0.75 X1000 (0.11-0.59); MONO% 8.7 % (1.7-9.3); MPV 9.4 FL (7.4-10.4); NEUT% 68.2 % (42.2-75.2); PLT 272 X1000 (130-400); RBC 4.55 XMIL (4.7-6.1); WBC 8.65 X1000 (4.8-10.8)
[2019-06-09 11:21] LABS: INR 1.02; PROTIME 13.5 Seconds (11.0-16.0)
[2019-06-09 11:29] LABS: AGAP 11; ALB/GLOB RATIO 1.2; ALBUMIN 4.1 g/dL (3.5-5.0); ALKALINE PHOSPHATASE 75 U/L (32-122); BUN 17 mg/dL (8-22); CALCIUM 10.3 mg/dL (8.8-10.2); CHLORIDE 98 mmol/L (98-107); COSMO 285; CREATININE 0.9 mg/dL (0.7-1.2); ESTIMATED GFR > 60; GLUCOSE 232 mg/dL (70-104); GOT 17 U/L (10-34); GPT 17 U/L (10-44); MAGNESIUM 1.7 mg/dL (1.5-2.7); POTASSIUM 4.8 mmol/L (3.5-5.1); SODIUM 138 mmol/L (136-145); TCO2 29 mmol/L (25-35); TOTAL BILIRUBIN 0.54 mg/dL (0.20-1.00); TOTAL PROTEIN 7.4 g/dL (6.3-8.3)
[2019-06-10] MEDS ORDERED: NS 1,000 ML ONE (07:57)
[2019-06-10] MEDS ORDERED: HEPARIN 1000 UNITS/NS 1,000 UNIT/500 ML IV.SOLN ONE (08:19)
[2019-06-10] MEDS ORDERED: XYLOCAINE 1% ONE (08:30)
[2019-06-10] MEDS ORDERED: VERSED ONE (09:02)
[2019-06-10] MEDS ORDERED: MORPHINE ONE (09:02)
[2019-06-10] MEDS ORDERED: DULCOLAX PR PRN (10:51)
[2019-06-10] MEDS ORDERED: MAGNESIUM SULFATE 2 GM in STERILE WATER INJ. 50 ML IV PRN ×4 (10:51)
[2019-06-10] MEDS ORDERED: NITROGLYCERIN SL PRN (10:51)
[2019-06-10] MEDS ORDERED: TYLENOL PO PRN (10:51)
[2019-06-10] MEDS ORDERED: ZOFRAN IV PRN (10:51)
[2019-06-10] MEDS ORDERED: RESTORIL PO PRN (10:51)
[2019-06-10] MEDS ORDERED: XANAX PO PRN (10:51)
[2019-06-10] MEDS ORDERED: CEPACOL SORE THROAT LOZENGE MT PRN (10:51)
[2019-06-10] MEDS ORDERED: MAGNESIUM SULFATE 3 GM in NS 100 ML IV PRN (10:51)
[2019-06-10] MEDS ORDERED: PERCOCET-5 PO PRN (10:51)
[2019-06-10] MEDS ORDERED: MILK OF MAGNESIA PO PRN (10:51)
[2019-06-10] MEDS ORDERED: KLOR-CON PO PRN ×3 (10:51)
[2019-06-10] MEDS ORDERED: NS 500 ML IV SCH (11:00)
[2019-06-10 11:24] VITALS: BP 142/91
--- NOTE | 2019-06-10 11:28 | EKG Report ---
Test Performed on : 06/10/2019 11:06:58 AM Test Reason : post heart cath Blood Pressure : / mmHG Vent. Rate : 095 BPM Atrial Rate : 095 BPM P-R Int : 194 ms QRS Dur : 086 ms QT Int : 376 ms P-R-T Axes : 063 -25 064 degrees QTc Int : 472 ms Normal sinus rhythm. Normal ECG When compared with ECG of 23-MAY-2019 15:39, (Unconfirmed) No significant change was found Confirmed by Jessica Drake MD ([id number]) on 06/14/2019 8:31:50 AM
--- NOTE | 2019-06-10 15:11 | CARDIAC CATH REPORT ---
PROCEDURE NAME: - PROCEDURE PERFORMED: Left heart catheterization with selective coronary angiography and left ventriculography. INDICATIONS: New onset angina with low threshold for onset in patient with diabetes mellitus. ENTRY SITE: Right femoral artery. CATHETERS USED: A 5-Australian JL4, 3DRC, and angled pigtail. TECHNIQUE: After intravenous sedation with Versed and morphine, local anesthesia with lidocaine was applied over the right femoral artery. Arterial access was established with the placement of a 5-Australian sheath in the right femoral artery using a modified Seldinger technique. Selective coronary angiography was performed, followed by left heart catheterization and left ventriculography. Upon completion of the procedure, the arterial sheath was removed and hemostasis facilitated with manual pressure. The patient tolerated the procedure without apparent complications. FINDINGS OF HEMODYNAMICS: Aortic pressure 114/60 with a mean of 72, left ventricular pressure 118 over EDP of 8. Comments on hemodynamics: There is no significant gradient across the aortic valve demonstrated on pullback from the left ventricle. ANGIOGRAPHY: 1. Left ventriculogram. The left ventricle is normal in size without wall motion abnormality evident on HANKINS projection. Estimated left ventricular ejection fraction is approximately 60%. There is no significant mitral regurgitation. 2. Left main coronary artery. The left main coronary artery is free of significant coronary stenosis. 3. Left anterior descending coronary artery. The left anterior descending coronary artery demonstrates an area of ulceration very proximally without significant stenosis. The proximal left anterior descending coronary just after a first diagonal branch demonstrates a severe (80- 90%) stenosis. The first diagonal branch is of medium caliber and demonstrates a moderate (60%) stenosis. The second diagonal branch is small to medium size and demonstrates a severe (80-90%) segmental stenosis proximally. The remainder of the left anterior descending coronary and its branches are free of significant coronary stenosis. 4. Left circumflex coronary artery. The left circumflex coronary artery is a dominant vessel, giving rise to the posterior descending artery. Sizable obtuse marginal demonstrates a moderate (50%) stenosis. Just after the origin of the obtuse marginal at midvessel, there is a severe (80%) focal stenosis. The remainder of the left circumflex coronary and its branches are free of significant coronary stenosis. 5. Right coronary artery. The right coronary artery is a small and nondominant. It demonstrates a mild (30-40%) proximal stenosis. CONCLUSIONS: 1. Normal left ventricular systolic function without wall motion abnormality evident on HANKINS projection. 2. Left dominant coronary anatomy with severe multivessel coronary atherosclerosis as described. RECOMMENDATIONS: Consult cardiothoracic surgery for pursuit of coronary artery bypass grafting. cc: Duy Fuentes MD
[2019-06-10] MEDS ORDERED: LIPITOR PO SCH (21:00)
== END 2019-06-10 15:20 | disposition home or self-care (01) ==
LOC: 2N 07:25 → OPS 07:25
PROVIDERS: ATTEND Internal Medicine Cardiovascular Disease